=== PATIENT | male | born 1990 | race Two or more races ===

== ENCOUNTER 2022-12-07 02:23 | Emergency (ER) | payer OTHER ==
[~2022-12-07] VITALS: Ht 190.5 cm; Wt 134.0 kg
[2022-12-07] MEDS ORDERED: LIDOCAINE VISCOUS 2% 15ML UD MT ONE (02:45)
[2022-12-07] MEDS ORDERED: HYDROcodone-ACET 5/325MG TAB PO ONE (02:45)
[2022-12-07] MEDS ORDERED: MAALOX PLUS or MAALOX 30 ML PO ONE (02:45)
[2022-12-07] MEDS ORDERED: PANTOPRAZOLE 40 MG TAB PO ONE (02:45)
[2022-12-07 02:57] LABS: Basophils # (auto) 0 10 ^3/uL (0-0.2); Basophils % (auto) 0.5 % (0.0-2.0); Eosinophils # (auto) 0.1 10 ^3/uL (0-0.8); Eosinophils % (auto) 1.3 % (0.0-7.0); Hematocrit 44.9 % (41.0-53.0); Hemoglobin 15.5 g/dL (13.5-17.5); Lymphocytes # (auto) 2.1 10 ^3/uL (0.4-5.4); Lymphocytes % (auto) 29.3 % (10.0-50.0); Mean Corpuscular Hemoglobin 29.8 pg (28.0-32.0); Mean Corpuscular Hgb Conc. 34.5 g/dL (32.0-36.0); Mean Corpuscular Volume 86.4 fL (80.0-100.0); Monocytes # (auto) 0.4 10 ^3/uL (0-1.3); Monocytes % (auto) 5.4 % (0.0-12.0); Neutrophils # (auto) 4.6 10 ^3/uL (1.6-8.6); Neutrophils % (auto) 63.5 % (37.0-80.0); Nucleated Red Blood Cells % 0.2 %; Red Cell Distribution Width 13.4 % (11.8-14.3); White Blood Cell 7.2 10^3/uL (4.4-10.8)
[2022-12-07 03:17] LABS: Albumin 3.8 g/dL (3.4-5.0); Calcium 8.7 mg/dL (8.5-10.1); Potassium 3.4 mmol/L (3.5-5.1)
[2022-12-07 03:20] LABS: Bilirubin, Total 1.4 mg/dL (0.2-1.0); Total Protein 6.7 g/dL (6.4-8.2)
[2022-12-07] MEDS ORDERED: OMEP-263 PO (04:29)
[2022-12-07 04:39] VITALS: BP 133/78
== END 2022-12-07 04:39 | disposition home or self-care (01) ==
LOC: ER 02:23
DX: R10.13 Epigastric pain (principal); Z88.6 Allergy status to analgesic agent
CPT/HCPCS: 36415; 80053; 83690; 84484; 85025; 93005